=== PATIENT | female | born 1990 | race Caucasian/White ===

== ENCOUNTER 2017-11-24 23:22 | Inpatient (IN) | payer MEDICAID ==
[2017-11-25] MEDS ORDERED: Sodium Chloride 0.9% 10 ML Syringe FLUSH PRN ×2 (00:11→05:21)
[2017-11-25] MEDS: Sodium Chloride 0.9% 1,000 ML IV SCH ×2 (00:36→04:16)
[2017-11-25] MEDS ORDERED: Ropivacaine HCl/PF 200 ML ONE (04:53)
[2017-11-25] MEDS ORDERED: fentaNYL 100 MCG/2 ML SDV IVPUSH PRN (05:21)
[2017-11-25] MEDS ORDERED: Acetaminophen 325 MG Tab PO PRN (05:21)
--- NOTE | 2017-11-25 05:34 | ANES ---
DATE OF SERVICE: 11/25/2017 I was called in at 4 o'clock this morning for a labor epidural for labor pain, I was at the bedside shortly after that at about 4:20. Brief history and physical of the was reviewed with the patient and . The patient stated that she had no abnormal bleeding issues. No hypertension during the . She stated she did have some heartburn, acid reflux symptoms, but otherwise overall healthy and normal . Platelet count was 258. The risks and benefits were reviewed with the patient and . The patient verbalized her understanding and still wishes to proceed with the labor epidural. She has had 1 in the past with the different delivery. The patient was then sat at the edge of the bed. Betadine prep x3 to the lumbar region was done. Sterile drape was placed. A 1% lidocaine skin wheal and deep was done at approximately the L4-L5 spot. A 17- gauge Tuohy needle was inserted at the L4-L5 space. Loss of resistance was achieved at approximately 5.5 cm, negative paresthesia, negative heme, negative CSF were noted at that time. Catheter was easily placed. Tuohy needle was then withdrawn. Catheter was pulled back to approximately 11 cm and secured with tape. I then proceeded to give the patient a 3 mL test dose. The patient was then laid supine with left uterine displacement. After several minutes, she showed no signs of local anesthetic toxicity or intravascular injection of local or subarachnoid block. I then proceeded to give her 10 mL of 0.2% ropivacaine bolus via the epidural. I then started her on a 0.2% ropivacaine drip at 12 mL an hour. The patient's blood pressure was fine after the bolus. The patient stated that she was starting to feel some tingling and numbness particularly in her right leg, but contractions were getting easier. The patient stated that she was comfortable. The patient will be monitored very closely by the nurses. Vital signs will be taken frequently. When I left the bedside, the patient stated she was comfortable. Marcelo Sanchez CRNA /[id number]
[2017-11-25] MEDS ORDERED: Penicillin G Potassium 5 MILLUNITS in Sodium Chloride 0.9% 50 ML IV ONE (05:46)
[2017-11-25] MEDS ORDERED: ePHEDrine 50 MG/ML SDV ONE (05:50)
--- NOTE | 2017-11-25 05:55 | PCM.LDHP ---
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: - Past Surgical History HEENT Surgical History: Reports: Other (See Below) Other HEENT Surgeries/Procedures: 2 ear surgeries Social & Family History - Family History Family Medical History: Noncontributory - Tobacco Use Smoking Status *Q: Never Smoker Second Hand Smoke Exposure: No - Caffeine Use Caffeine Use: Reports: Coffee - Recreational Drug Use Recreational Drug Use: No H&P Review of Systems - Review of Systems: Review Of Systems: See Below General: Reports: No Symptoms HEENT: Reports: No Symptoms Pulmonary: Reports: No Symptoms Cardiovascular: Reports: No Symptoms Gastrointestinal: Reports: No Symptoms Genitourinary: Reports: No Symptoms Musculoskeletal: Reports: No Symptoms Skin: Reports: No Symptoms Psychiatric: Reports: No Symptoms Neurological: Reports: No Symptoms Hematologic/Lymphatic: Reports: No Symptoms Immunologic: Reports: No Symptoms L&D Exam - Exam Exam: See Below - Vital Signs Vital Signs: Last Vital Signs Temp 36.2 C 11/25/17 02:45 Pulse 78 11/25/17 02:45 Resp 16 11/25/17 02:45 BP 105/67 11/25/17 02:45 Pulse Ox 97 11/25/17 02:45 Weight: 74.843 kg - OB Specific Contraction Duration (sec): 50-100 Contraction Frequency (min): 2-3 Contraction Intensity: Moderate Movement: Active Heart Tones: Present Heart Rate (FHR) Variability: Moderate (6-25 bmp) Presentation: Left Occiput Posterior (LOP) - Gallo Score Gallo Score Cervix Position: Midposition Gallo Score Consistency: Soft Gallo Score Effacement: >80% Gallo Score Dilation: > 5 cm Gallo Score 's Station: -2 Gallo Score Total: 10 - Exam General: Alert, Oriented HEENT: PERRLA, Conjunctiva Clear, EACs Clear, EOMI, Hearing Intact, Mucosa Moist & [place], Nares Patent, Normal Nasal Septum, Posterior Pharynx Clear, TMs Clear Neck: Supple, Trachea Midline Lungs: Clear to Auscultation, Normal Respiratory Effort Cardiovascular: Regular Rate, Regular Rhythm GI/Abdominal Exam: Normal Bowel Sounds, Soft, Non-Tender, No Organomegaly, No Distention, No Abnormal Bruit, No Mass, Pelvis Stable Rectal Exam: Normal Exam, Normal Rectal Tone Genitourinary: Normal external exam, Normal bimanual exam, Normal speculum exam Back Exam: Normal Inspection, Full Range of Motion Extremities: Normal Inspection, Normal Range of Motion, Non-Tender, No Pedal Edema, Normal Capillary Refill Skin: Warm, Dry, Intact Neurological: Cranial Nerves Intact, Reflexes Equal Bilateral DTR: 2+: Patella (L), Patella (R) Psychiatric: Alert, Normal Affect, Normal Mood - Patient Data Lab Results Last 24 hrs: Laboratory Results - last 24 hr 11/24/17 11/24/17 11/25/17 Range/Units 23:29 23:48 00:20 WBC 9.6 (4.5-11.0) K/uL RBC 3.92 (3.30-5.50) M/uL Hgb 10.6 L (12.0-15.0) g/dL Hct 33.1 L (36.0-48.0) % MCV 84 (80-98) fL MCH 27 (27-31) pg MCHC 32 (32-36) % Plt Count 258 (150-400) K/uL Urine Color Yellow Urine Appearance Clear Urine pH 6.0 (4.5-8.0) Ur Specific [place] 1.010 (1.008-1.030) Urine Protein Negative (NEGATIVE) mg/dL Urine Glucose (UA) Normal (NEGATIVE) mg/dL Urine Ketones Negative (NEGATIVE) mg/dL Urine Occult Blood Negative (NEGATIVE) Urine Nitrite Negative (NEGATIVE) Urine Bilirubin Negative (NEGATIVE) Urine Urobilinogen Normal (NORMAL) mg/dL Ur Leukocyte Esterase Negative (NEGATIVE) Urine RBC 0-5 (0-5) Urine WBC 0-5 (0-5) Ur Epithelial Cells Few Amorphous Sediment Not seen Urine Bacteria Rare Urine Mucus Not seen Membrane Rupture Positive H (NEGATIVE) Urine Opiates Screen (NEGATIVE) Ur Oxycodone Screen (NEGATIVE) Urine Methadone Screen (NEGATIVE) Ur Propoxyphene Screen (NEGATIVE) Ur Barbiturates Screen (NEGATIVE) Ur Tricyclics Screen (NEGATIVE) Ur Phencyclidine Scrn (NEGATIVE) Ur Amphetamine Screen (NEGATIVE) U Methamphetamines Scrn (NEGATIVE) Urine MDMA Screen (NEGATIVE) U Benzodiazepines Scrn (NEGATIVE) U Cocaine Metab Screen (NEGATIVE) U Marijuana (THC) Screen (NEGATIVE) 11/25/17 Range/Units 00:20 WBC (4.5-11.0) K/uL RBC (3.30-5.50) M/uL Hgb (12.0-15.0) g/dL Hct (36.0-48.0) % MCV (80-98) fL MCH (27-31) pg MCHC (32-36) % Plt Count (150-400) K/uL Urine Color Urine Appearance Urine pH (4.5-8.0) Ur Specific [place] (1.008-1.030) Urine Protein (NEGATIVE) mg/dL Urine Glucose (UA) (NEGATIVE) mg/dL Urine Ketones (NEGATIVE) mg/dL Urine Occult Blood (NEGATIVE) Urine Nitrite (NEGATIVE) Urine Bilirubin (NEGATIVE) Urine Urobilinogen (NORMAL) mg/dL Ur Leukocyte Esterase (NEGATIVE) Urine RBC (0-5) Urine WBC (0-5) Ur Epithelial Cells Amorphous Sediment Urine Bacteria Urine Mucus Membrane Rupture (NEGATIVE) Urine Opiates Screen Negative (NEGATIVE) Ur Oxycodone Screen Negative (NEGATIVE) Urine Methadone Screen Negative (NEGATIVE) Ur Propoxyphene Screen Negative (NEGATIVE) Ur Barbiturates Screen Negative (NEGATIVE) Ur Tricyclics Screen Negative (NEGATIVE) Ur Phencyclidine Scrn Negative (NEGATIVE) Ur Amphetamine Screen Negative (NEGATIVE) U Methamphetamines Scrn Negative (NEGATIVE) Urine MDMA Screen Negative (NEGATIVE) U Benzodiazepines Scrn Negative (NEGATIVE) U Cocaine Metab Screen Negative (NEGATIVE) U Marijuana (THC) Screen Negative (NEGATIVE) Result Diagrams: 11/25/17 00:20 - Problem List (1) Prolonged rupture of membranes Status: Acute Current Visit: Yes (2) SNOMED Code(s): 63023805 ICD Code: Z34.90 - ENCNTR FOR SUPRVSN OF NORMAL , UNSP, UNSP TRIMESTER Status: Acute Current Visit: Yes Qualifiers: Weeks of gestation: 38 weeks Qualified Code(s): Z3A.38 - 38 weeks gestation of Problem List Initiated/Reviewed/Updated: Yes Orders Last 24hrs: Active Orders 24 hr Category Date Time Status Patient Status [ADT] Routine ADT 11/25/17 00:05 Active Patient Status [ADT] Routine ADT 11/25/17 05:21 Active Ambulate [RC] PER UNIT ROUTINE Care 11/25/17 05:21 Active Communication Order [RC] ASDIRECTED Care 11/25/17 05:21 Active Heart Tones [RC] PER UNIT ROUTINE Care 11/25/17 05:21 Active Non Stress Test [RC] Click to Edit Care 11/25/17 05:21 Active Notify Provider Vital Signs [RC] PRN Care 11/25/17 05:21 Active Notify Provider [RC] PRN Care 11/25/17 05:21 Active OB Check [OM.PC] Click to Edit Care 11/24/17 23:25 Ordered PCEA Epidural [RC] ASDIRECTED Care 11/25/17 04:00 Active Peripheral IV Care [RC] Q12H Care 11/25/17 00:12 Active Urinary Catheter Assessment [RC] ASDIRECTED Care 11/25/17 05:31 Active Urinary Catheter Insertion [Insert Urinary Catheter] [ Care 11/25/17 05:30 Ordered OM.PC] Q24H VTE/DVT Education [RC] Click to Edit Care 11/25/17 05:27 Active Vital Signs [RC] PER UNIT ROUTINE Care 11/25/17 05:21 Active AMNISURE RUPTURE MEMBRAN [BF] Urgent Lab 11/24/17 23:48 Ordered DRUG SCREEN, URINE [URCHEM] Routine Lab 11/25/17 00:20 Ordered UA W/MICROSCOPIC [URIN] Routine Lab 11/24/17 23:29 Ordered Acetaminophen [Tylenol] Med 11/25/17 05:21 Active 650 mg PO Q4H PRN Oxytocin/Normal Saline [Pitocin in NS 20 Units/1,000 ML Med 11/25/17 05:29 Active ] 20 unit in 1,000 ml IV ONETIME Oxytocin/Normal Saline [Pitocin in NS 20 Units/1,000 ML Med 11/25/17 00:15 Active ] 20 unit in 1,000 ml IV TITRATE Penicillin G Potassium [Pfizerpen] 5 millunits Med 11/25/17 05:46 Ordered Sodium Chloride 0.9% [Normal Saline] 50 ml IV ONETIME Sodium Chloride 0.9% [Normal Saline] 1,000 ml Med 11/25/17 00:30 Active IV ASDIRECTED Sodium Chloride 0.9% [Saline Flush] Med 11/25/17 00:11 Active 10 ml FLUSH ASDIRECTED PRN Sodium Chloride 0.9% [Saline Flush] Med 11/25/17 05:21 Active 10 ml FLUSH ASDIRECTED PRN fentaNYL [Sublimaze] Med 11/25/17 05:21 Active 100 mcg IVPUSH Q1H PRN DVT/VTE Prophylaxis Reflex [OM.PC] Routine Oth 11/25/17 05:21 Ordered Epidural Catheter Management [OM.PC] Routine Oth 11/25/17 04:00 Ordered Peripheral IV Insertion Adult [OM.PC] Routine Oth 11/25/17 00:11 Ordered Saline Lock Insert [OM.PC] Routine Oth 11/25/17 05:21 Ordered Resuscitation Status Routine Resus Stat 11/25/17 05:21 Ordered Medication Orders Acetaminophen (Tylenol) 650 mg PO Q4H PRN PRN Reason: Pain (Mild 1-3) and fever Fentanyl (Sublimaze) 100 mcg IVPUSH Q1H PRN PRN Reason: Pain (moderate 4-6) Oxytocin/Sodium Chloride (Pitocin In Ns 20 Units/1,000 Ml) 20 unit in 1,000 mls @ 6 mls/hr IV TITRATE HERIBERTO; Protocol Last Titration: 11/25/17 02:41 Dose: 4 munits/min, 12 mls/hr Titration: 11/25/17 01:31 Dose: 3 munits/min, 9 mls/hr Admin: 11/25/17 00:51 Dose: 2 munits/min, 6 mls/hr Sodium Chloride (Normal Saline) 1,000 mls @ 0 mls/hr IV ASDIRECTED HERIBERTO Last Admin: 11/25/17 04:16 Dose: 25 mls/hr Infusion: 11/25/17 03:57 Dose: 999 mls/hr Infusion: 11/25/17 03:00 Dose: 999 mls/hr Admin: 11/25/17 00:36 Dose: 25 mls/hr Oxytocin/Sodium Chloride (Pitocin In Ns 20 Units/1,000 Ml) 20 unit in 1,000 mls @ 2,997 mls/hr IV ONETIME ONE; Protocol Stop: 11/25/17 05:49 Sodium Chloride (Saline Flush) 10 ml FLUSH ASDIRECTED PRN PRN Reason: Keep Vein Open Sodium Chloride (Saline Flush) 10 ml FLUSH ASDIRECTED PRN PRN Reason: Keep Vein Open Assessment/Plan Comment:: 11/25/2017 27 yo came in with SROM at 0900 on 11/24/2017 but came to the hospital around 2330 last evening. Positive Amnisure Prolonged Rupture of Membranes SVE now 6-7/80/-2 Fetus in LOP position FHTs category one Chanda regular with Pitocin Plan- Continue to monitor labor Continue to monitor FHTs Epidural for pain management Continue IV fluids Continue Pitocin per protocol Give one dose PCN G 5 units IV now-if no delivery in four hours will do another dose at 2.5 units Rotate patient on peanut ball Minimal SVE exams Monitor vital signs closely Plan and anticipate a vaginal delivery
[2017-11-25] MEDS ORDERED: ePHEDrine 50 MG/ML SDV IVPUSH PRN (06:31)
[2017-11-25] MEDS ORDERED: ePHEDrine 50 MG/ML SDV IVPUSH ONE (06:32)
[2017-11-25] MEDS ORDERED: Lactated Ringers 1,000 ML IV ONE (06:32)
--- NOTE | 2017-11-25 06:50 | PCM.PNLD ---
Labor Progress Note - VS & Meds Vital Signs: Last Vital Signs Temp 36.2 C 11/25/17 02:45 Pulse 78 11/25/17 02:45 Resp 16 11/25/17 02:45 BP 105/67 11/25/17 02:45 Pulse Ox 97 11/25/17 02:45 Active Medications: Current Medications Acetaminophen (Tylenol) 650 mg PO Q4H PRN PRN Reason: Pain (Mild 1-3) and fever Fentanyl (Sublimaze) 100 mcg IVPUSH Q1H PRN PRN Reason: Pain (moderate 4-6) Oxytocin/Sodium Chloride (Pitocin In Ns 20 Units/1,000 Ml) 20 unit in 1,000 mls @ 6 mls/hr IV TITRATE HERIBERTO; Protocol Last Titration: 11/25/17 06:25 Dose: 6 munits/min, 18 mls/hr Sodium Chloride (Normal Saline) 1,000 mls @ 0 mls/hr IV ASDIRECTED HERIBERTO Last Infusion: 11/25/17 06:24 Dose: 100 mls/hr Lactated Ringer's (Ringers, Lactated) 1,000 mls @ 999 mls/hr IV ONETIME ONE Stop: 11/25/17 07:32 Sodium Chloride (Saline Flush) 10 ml FLUSH ASDIRECTED PRN PRN Reason: Keep Vein Open Sodium Chloride (Saline Flush) 10 ml FLUSH ASDIRECTED PRN PRN Reason: Keep Vein Open Discontinued Medications Ephedrine Sulfate (Ephedrine Sulfate) Confirm Administered Dose 50 mg .ROUTE .ST-MED ONE Stop: 11/25/17 05:51 Last Admin: 11/25/17 06:14 Dose: 5 mg Ephedrine Sulfate (Ephedrine Sulfate) 5 - 10 mg IVPUSH ONETIME PRN PRN Reason: Hypotension Ephedrine Sulfate (Ephedrine Sulfate) 5 mg IVPUSH ONETIME ONE Stop: 11/25/17 06:33 Ropivacaine (Naropin 0.2%) Confirm Administered Dose 200 mls @ as directed .ROUTE .STK-MED ONE Stop: 11/25/17 04:54 Oxytocin/Sodium Chloride (Pitocin In Ns 20 Units/1,000 Ml) 20 unit in 1,000 mls @ 2,997 mls/hr IV ONETIME ONE; Protocol Stop: 07/15/18 05:49 Penicillin G Potassium 5 (millunits/ Sodium Chloride) 50 mls @ 100 mls/hr IV ONETIME ONE Stop: 11/25/17 06:15 Last Admin: 11/25/17 06:21 Dose: 100 mls/hr - Uterine Contractions Uterine Monitoring Mode: External [place] Contraction Frequency (min): 2-3 Contraction Duration (sec): 50-100 Contraction Intensity: Moderate Uterine Resting Tone: Soft - Monitoring Heart Rate (FHR) Variability: Moderate (6-25 bmp) - Vaginal Exam Dilation (cm): 6-7 Effacement (Percent): 80 Station: -2 Cervical Position: Midposition Sterile Vaginal Exam Performed By: Joanie Campoverde - Labor Progress (Free Text) Labor Progress: 11/25/2017 Patient remains SVE-6-7/80/-2 FHTs category one Contractions every 1-3 minutes Patient comfortable with epidural Plan- Continue to monitor labor Continue to monitor FHTs Continue Epidural for pain Continue fluids-bolus as needed for BP and/or heart tones Continue to rotate position of patient If no delivery at 24 hours rupture will continue antibiotics every 4 hours Plan and anticipate a vaginal delivery
--- NOTE | 2017-11-25 08:02 | PCM.PNLD ---
Labor Progress Note - VS & Meds Vital Signs: Last Vital Signs Temp 36.4 C 11/25/17 07:02 Pulse 101 H 11/25/17 07:17 Resp 16 11/25/17 07:17 BP 122/67 11/25/17 07:17 Pulse Ox 99 11/25/17 07:17 Active Medications: Current Medications Acetaminophen (Tylenol) 650 mg PO Q4H PRN PRN Reason: Pain (Mild 1-3) and fever Fentanyl (Sublimaze) 100 mcg IVPUSH Q1H PRN PRN Reason: Pain (moderate 4-6) Oxytocin/Sodium Chloride (Pitocin In Ns 20 Units/1,000 Ml) 20 unit in 1,000 mls @ 6 mls/hr IV TITRATE HERIBERTO; Protocol Last Titration: 11/25/17 07:46 Dose: 10 munits/min, 30 mls/hr Sodium Chloride (Normal Saline) 1,000 mls @ 0 mls/hr IV ASDIRECTED HERIBERTO Last Infusion: 11/25/17 06:24 Dose: 100 mls/hr Sodium Chloride (Saline Flush) 10 ml FLUSH ASDIRECTED PRN PRN Reason: Keep Vein Open Sodium Chloride (Saline Flush) 10 ml FLUSH ASDIRECTED PRN PRN Reason: Keep Vein Open Discontinued Medications Ephedrine Sulfate (Ephedrine Sulfate) Confirm Administered Dose 50 mg .ROUTE .[employer] ONE Stop: 11/25/17 05:51 Last Admin: 11/25/17 06:14 Dose: 5 mg Ephedrine Sulfate (Ephedrine Sulfate) 5 - 10 mg IVPUSH ONETIME PRN PRN Reason: Hypotension Ephedrine Sulfate (Ephedrine Sulfate) 5 mg IVPUSH ONETIME ONE Stop: 11/25/17 06:33 Last Admin: 11/25/17 06:30 Dose: 5 mg Ropivacaine (Naropin 0.2%) Confirm Administered Dose 200 mls @ as directed .ROUTE .[employer]-MED ONE Stop: 11/25/17 04:54 Oxytocin/Sodium Chloride (Pitocin In Ns 20 Units/1,000 Ml) 20 unit in 1,000 mls @ 2,997 mls/hr IV ONETIME ONE; Protocol Stop: 11/25/17 05:49 Penicillin G Potassium 5 (millunits/ Sodium Chloride) 50 mls @ 100 mls/hr IV ONETIME ONE Stop: 11/25/17 06:15 Last Admin: 11/25/17 06:21 Dose: 100 mls/hr Lactated Ringer's (Ringers, Lactated) 1,000 mls @ 999 mls/hr IV ONETIME ONE Stop: 11/25/17 07:32 - Uterine Contractions Uterine Monitoring Mode: External [place] Contraction Frequency (min): 2-4 Contraction Duration (sec): 60-90 Contraction Intensity: Moderate to Strong Uterine Resting Tone: Soft - Monitoring Heart Rate (FHR) Variability: Moderate (6-25 bmp) - Vaginal Exam Dilation (cm): 8 Effacement (Percent): 90 Station: 0 Cervical Position: Anterior Sterile Vaginal Exam Performed By: Joanie Campoverde - Labor Progress (Free Text) Labor Progress: 11/25/2017 Patient progressing SVE-8-9/90/0 Contractions regular FHTs category one Pitocin going per protocol Patient comfortable with epidural Plan- Continue to monitor labor Continue to monitor FHTs Continue pitocin per protocol Continue epidural for pain control Plan and anticipate a vaginal delivery
[2017-11-25] MEDS ORDERED: Oxytocin 10 Units/1 ML SDV ONE (08:46)
[2017-11-25] MEDS ORDERED: Lidocaine 1% 50 ML MDV ONE (08:47)
[2017-11-25] MEDS ORDERED: Methylergonovine 0.2 MG/1 ML Amp IM ONE (09:00)
[2017-11-25] MEDS ORDERED: Methylergonovine 0.2 MG/1 ML Amp ONE (09:07)
[2017-11-25] MEDS ORDERED: Ibuprofen 200 MG Tab, 24 Tab Bulk Bottle PO PRN (09:40)
[2017-11-25] MEDS ORDERED: Acetaminophen 325 MG Tab, 50 Tab Bulk Bottle PO PRN (09:40)
[2017-11-25] MEDS ORDERED: Acetaminophen/Codeine 300-30 MG Tab PO PRN (09:40)
[2017-11-25] MEDS ORDERED: Docusate Sodium 100 MG Cap PO PRN (09:40)
[2017-11-25] MEDS ORDERED: Witch Hazel Medicated Pads 100/Jar TOP PRN (09:40)
[2017-11-25] MEDS ORDERED: Benzocaine 20% Top Spray 56 GM Bottle TOP PRN (09:40)
[2017-11-25] MEDS ORDERED: Lanolin 100% Cream 40 GM Tube TOP PRN (09:40)
--- NOTE | 2017-11-25 10:09 | PCM.DEL ---
L & D Note - General Info Date of Service: 11/25/17 Mother's Due Date: 12/03/17 - Delivery Note Labor: Augmented by Oxytocin Delivery Outcome: Livebirth Infant Delivery Method: Spontaneous Vaginal Delivery-Single Delivery Mode: Spontaneous Presentation: Left Occiput Transverse (LOT) Nuchal Cord: None Anesthesia Type: Epidural Amniotic Fluid Description: Meconium Stained Episiotomy Type: Right Mediolateral Laceration: 2nd Degree Suture type: Chromic Suture size: 3-0 Placenta: Intact, Spontaneous, Clot (moderate sized), Meconium Stained Cord: 3 Vessels, True Knot Estimated Blood Loss: 450 Resuscitation Needed: No : Bulb Syringe, Stimulated, Warmed, [place] Used Provider: Joanie Campoverde Score 1 min: 9 Score 5 min: 9 Second Stage Interventions: Reports: Encouragement Given, Pushing Effectively, Pushing, McRobert's Position, Other (see below) (suprapubic ) Delivery Comments (Free Text/Narrative):: 11/25/2017 27 yo had a viable male at 0851 on 11/25/2017 in LOT position at 38 6/7 gestational weeks. Mild shoulder dystocia resolved with Jossie and Suprapubic. APGARS-9/9, weight-8lbs 9.6oz, length-20 inches. Infant placed on prewarmed blanket on mothers abdomen, stimulated, warmed, dried, and bulb suctioned. Cord then double clamped, three vessel cord, true knot noted. Placenta spontaneous and intact, moderate clot noted, and meconium stained. Right mediolateral episiotomy with 2nd degree extension repaired in usual fashion. No lacerations noted of cervix, labia, or rectum. EBL-450ml. Mother in labor and delivery room stable condition, and remains skin to skin in stable condition. - General Info Date of Service: 11/25/17 Functional Status: Reports: Pain Controlled - Review of Systems General: Reports: No Symptoms HEENT: Reports: No Symptoms Pulmonary: Reports: No Symptoms Cardiovascular: Reports: No Symptoms Gastrointestinal: Reports: No Symptoms Genitourinary: Reports: No Symptoms Musculoskeletal: Reports: No Symptoms Skin: Reports: No Symptoms Neurological: Reports: No Symptoms Psychiatric: Reports: No Symptoms - Patient Data Vitals - Most Recent: Last Vital Signs Temp 36.4 C 11/25/17 07:02 Pulse 88 07/15/18 09:20 Resp 18 11/25/17 09:20 BP 79/62 L 11/25/17 09:20 Pulse Ox 96 11/25/17 09:20 Weight - Most Recent: 74.843 kg Lab Results Last 24 Hours: Laboratory Results - last 24 hr 11/24/17 11/24/17 11/25/17 Range/Units 23:29 23:48 00:20 WBC 9.6 (4.5-11.0) K/uL RBC 3.92 (3.30-5.50) M/uL Hgb 10.6 L (12.0-15.0) g/dL Hct 33.1 L (36.0-48.0) % MCV 84 (80-98) fL MCH 27 (27-31) pg MCHC 32 (32-36) % Plt Count 258 (150-400) K/uL Urine Color Yellow Urine Appearance Clear Urine pH 6.0 (4.5-8.0) Ur Specific [place] 1.010 (1.008-1.030) Urine Protein Negative (NEGATIVE) mg/dL Urine Glucose (UA) Normal (NEGATIVE) mg/dL Urine Ketones Negative (NEGATIVE) mg/dL Urine Occult Blood Negative (NEGATIVE) Urine Nitrite Negative (NEGATIVE) Urine Bilirubin Negative (NEGATIVE) Urine Urobilinogen Normal (NORMAL) mg/dL Ur Leukocyte Esterase Negative (NEGATIVE) Urine RBC 0-5 (0-5) Urine WBC 0-5 (0-5) Ur Epithelial Cells Few Amorphous Sediment Not seen Urine Bacteria Rare Urine Mucus Not seen Membrane Rupture Positive H (NEGATIVE) Urine Opiates Screen (NEGATIVE) Ur Oxycodone Screen (NEGATIVE) Urine Methadone Screen (NEGATIVE) Ur Propoxyphene Screen (NEGATIVE) Ur Barbiturates Screen (NEGATIVE) Ur Tricyclics Screen (NEGATIVE) Ur Phencyclidine Scrn (NEGATIVE) Ur Amphetamine Screen (NEGATIVE) U Methamphetamines Scrn (NEGATIVE) Urine MDMA Screen (NEGATIVE) U Benzodiazepines Scrn (NEGATIVE) U Cocaine Metab Screen (NEGATIVE) U Marijuana (THC) Screen (NEGATIVE) 11/25/17 Range/Units 00:20 WBC (4.5-11.0) K/uL RBC (3.30-5.50) M/uL Hgb (12.0-15.0) g/dL Hct (36.0-48.0) % MCV (80-98) fL MCH (27-31) pg MCHC (32-36) % Plt Count (150-400) K/uL Urine Color Urine Appearance Urine pH (4.5-8.0) Ur Specific [place] (1.008-1.030) Urine Protein (NEGATIVE) mg/dL Urine Glucose (UA) (NEGATIVE) mg/dL Urine Ketones (NEGATIVE) mg/dL Urine Occult Blood (NEGATIVE) Urine Nitrite (NEGATIVE) Urine Bilirubin (NEGATIVE) Urine Urobilinogen (NORMAL) mg/dL Ur Leukocyte Esterase (NEGATIVE) Urine RBC (0-5) Urine WBC (0-5) Ur Epithelial Cells Amorphous Sediment Urine Bacteria Urine Mucus Membrane Rupture (NEGATIVE) Urine Opiates Screen Negative (NEGATIVE) Ur Oxycodone Screen Negative (NEGATIVE) Urine Methadone Screen Negative (NEGATIVE) Ur Propoxyphene Screen Negative (NEGATIVE) Ur Barbiturates Screen Negative (NEGATIVE) Ur Tricyclics Screen Negative (NEGATIVE) Ur Phencyclidine Scrn Negative (NEGATIVE) Ur Amphetamine Screen Negative (NEGATIVE) U Methamphetamines Scrn Negative (NEGATIVE) Urine MDMA Screen Negative (NEGATIVE) U Benzodiazepines Scrn Negative (NEGATIVE) U Cocaine Metab Screen Negative (NEGATIVE) U Marijuana (THC) Screen Negative (NEGATIVE) Med Orders - Current: Current Medications Acetaminophen (Tylenol) 650 mg PO Q4H PRN PRN Reason: Pain (Mild 1-3) and fever Acetaminophen (Tylenol Bulk Bottle) 325 - 650 mg PO Q4H PRN PRN Reason: Pain Acetaminophen/Codeine Phosphate (Tylenol With Codeine No.3 300mg/30mg) 1 tab PO Q4H PRN PRN Reason: Pain (moderate 4-6) Benzocaine (Poky-B-Ahisusp 20% [place]) 0 gm TOP Q4H PRN PRN Reason: Perineal Comfort Measure Docusate Sodium (Colace) 100 mg PO BID PRN PRN Reason: Constipation Emollient Ointment (Lansinoh Hpa) 1 gm TOP ASDIRECTED PRN PRN Reason: Sore Nipples Fentanyl (Sublimaze) 100 mcg IVPUSH Q1H PRN PRN Reason: Pain (moderate 4-6) Oxytocin/Sodium Chloride (Pitocin In Ns 20 Units/1,000 Ml) 20 unit in 1,000 mls @ 6 mls/hr IV TITRATE HERIBERTO; Protocol Last Titration: 11/25/17 07:46 Dose: 10 munits/min, 30 mls/hr Sodium Chloride (Normal Saline) 1,000 mls @ 0 mls/hr IV ASDIRECTED HERIBERTO Last Infusion: 11/25/17 06:24 Dose: 100 mls/hr Ibuprofen (Motrin Bulk Bottle) 600 mg PO Q6H PRN PRN Reason: Pain Sodium Chloride (Saline Flush) 10 ml FLUSH ASDIRECTED PRN PRN Reason: Keep Vein Open Sodium Chloride (Saline Flush) 10 ml FLUSH ASDIRECTED PRN PRN Reason: Keep Vein Open Witch Mirian (Tucks) 1 pad TOP ASDIRECTED PRN PRN Reason: Hemorrhoids Discontinued Medications Ephedrine Sulfate (Ephedrine Sulfate) Confirm Administered Dose 50 mg .ROUTE .STK-MED ONE Stop: 11/25/17 05:51 Last Admin: 11/25/17 06:14 Dose: 5 mg Ephedrine Sulfate (Ephedrine Sulfate) 5 - 10 mg IVPUSH ONETIME PRN PRN Reason: Hypotension Ephedrine Sulfate (Ephedrine Sulfate) 5 mg IVPUSH ONETIME ONE Stop: 11/25/17 06:33 Last Admin: 11/25/17 06:30 Dose: 5 mg Ropivacaine (Naropin 0.2%) Confirm Administered Dose 200 mls @ as directed .ROUTE .STK-MED ONE Stop: 11/25/17 04:54 Oxytocin/Sodium Chloride (Pitocin In Ns 20 Units/1,000 Ml) 20 unit in 1,000 mls @ 2,997 mls/hr IV ONETIME ONE; Protocol Stop: 11/25/17 05:49 Last Admin: 11/25/17 09:13 Dose: Not Given Penicillin G Potassium 5 (millunits/ Sodium Chloride) 50 mls @ 100 mls/hr IV ONETIME ONE Stop: 11/25/17 06:15 Last Admin: 11/25/17 06:21 Dose: 100 mls/hr Lactated Ringer's (Ringers, Lactated) 1,000 mls @ 999 mls/hr IV ONETIME ONE Stop: 11/25/17 07:32 Last Admin: 11/25/17 09:13 Dose: Not Given Lidocaine HCl (Xylocaine 1%) Confirm Administered Dose 100 ml .ROUTE .STK-MED ONE Stop: 11/25/17 08:48 Last Admin: 11/25/17 09:12 Dose: Not Given Methylergonovine Maleate (Methergine) Confirm Administered Dose 0.2 mg .ROUTE .STK-MED ONE Stop: 11/25/17 09:08 Last Admin: 11/25/17 09:12 Dose: 0.2 mg Oxytocin (Pitocin) Confirm Administered Dose 10 unit .ROUTE .STK-MED ONE Stop: 11/25/17 08:47 Last Admin: 11/25/17 09:12 Dose: Not Given - Exam General: Alert, Oriented HEENT: Pupils Equal, Pupils Reactive, EOMI, Mucous Membr. Moist/[place] Neck: Supple Lungs: Clear to Auscultation, Normal Respiratory Effort Cardiovascular: Regular Rate, Regular Rhythm GI/Abdominal Exam: Normal Bowel Sounds, Soft, Non-Tender, No Organomegaly, No Distention, No Abnormal Bruit, No Mass, Pelvis Stable (Female) Exam: Normal External Exam, Normal Speculum Exam, Normal Bimanual Exam Back Exam: Normal Inspection, Full Range of Motion Extremities: Normal Inspection, Normal Range of Motion, Non-Tender, No Pedal Edema, Normal Capillary Refill Skin: Warm, Dry, Intact Neurological: No New Focal Deficit Psy/Mental Status: Alert, Normal Affect, Normal Mood - Problem List & Annotations (1) Prolonged rupture of membranes Status: Acute Current Visit: Yes (2) SNOMED Code(s): 80981088 Code(s): Z34.90 - ENCNTR FOR SUPRVSN OF NORMAL , UNSP, UNSP TRIMESTER Status: Acute Current Visit: Yes Qualifiers: Weeks of gestation: 38 weeks Qualified Code(s): Z3A.38 - 38 weeks gestation of (3) Perineal laceration SNOMED Code(s): 198428383 Code(s): S31.41XA - LACERATION W/O FOREIGN BODY OF VAGINA AND VULVA, INIT ENCNTR Status: Acute Current Visit: Yes Qualifiers: Encounter type: initial encounter Qualified Code(s): S31.41XA - Laceration without foreign body of vagina and vulva, initial encounter (4) Meconium in amniotic fluid SNOMED Code(s): 982373721, 001436059 Code(s): P96.83 - MECONIUM STAINING Status: Acute Current Visit: Yes - Problem List Review Problem List Initiated/Reviewed/Updated: Yes - My Orders Last 24 Hours: My Active Orders 11/24/17 23:25 OB Check [OM.PC] Click To Edit 11/24/17 23:29 UA W/MICROSCOPIC [URIN] Routine 11/24/17 23:48 AMNISURE RUPTURE MEMBRAN [BF] Urgent 11/25/17 00:05 Patient Status [ADT] Routine 11/25/17 00:11 Sodium Chloride 0.9% [Saline Flush] 10 ml FLUSH ASDIRECTED PRN Peripheral IV Insertion Adult [OM.PC] Routine 11/25/17 00:12 Peripheral IV Care [RC] Q12H 11/25/17 00:15 Oxytocin/Normal Saline [Pitocin in NS 20 Units/1,000 ML] 20 unit in 1,000 ml IV TITRATE 11/25/17 00:20 DRUG SCREEN, URINE [URCHEM] Routine 11/25/17 00:30 Sodium Chloride 0.9% [Normal Saline] 1,000 ml IV ASDIRECTED 11/25/17 04:00 PCEA Epidural [RC] ASDIRECTED Epidural Catheter Management [OM.PC] Routine 11/25/17 05:21 Patient Status [ADT] Routine Ambulate [RC] PER UNIT ROUTINE Communication Order [RC] ASDIRECTED Heart Tones [RC] PER UNIT ROUTINE Notify Provider Vital Signs [RC] PRN Notify Provider [RC] PRN Vital Signs [RC] PER UNIT ROUTINE Acetaminophen [Tylenol] 650 mg PO Q4H PRN Sodium Chloride 0.9% [Saline Flush] 10 ml FLUSH ASDIRECTED PRN fentaNYL [Sublimaze] 100 mcg IVPUSH Q1H PRN DVT/VTE Prophylaxis Reflex [OM.PC] Routine Saline Lock Insert [OM.PC] Routine Resuscitation Status Routine 11/25/17 05:27 VTE/DVT Education [RC] Click to Edit 11/25/17 05:30 Urinary Catheter Insertion [Insert Urinary Catheter] [OM.PC] Q24H 11/25/17 05:31 Urinary Catheter Assessment [RC] ASDIRECTED 11/25/17 09:40 Patient Status [ADT] Routine Up ad [place]ortencia [RC] ASDIRECTED Vital Signs [RC] PFP Acetaminophen [Tylenol Bulk Bottle] 325 - 650 mg PO Q4H PRN Acetaminophen/Codeine [Tylenol with Codeine No.3 300MG/30MG] 1 tab PO Q4H PRN Benzocaine [Illd-B-Ltejpib 20% [place]] See Dose Instructions TOP Q4H PRN Docusate Sodium [Colace] 100 mg PO BID PRN Ibuprofen [Motrin Bulk Bottle] 600 mg PO Q6H PRN Lanolin [Lansinoh HPA] 1 gm TOP ASDIRECTED PRN Witch Mirian [Tucks] 1 pad TOP ASDIRECTED PRN Assess Lochia [WOMSER] Per Unit Routine Assess Uterine Involution [WOMSER] Per Unit Routine 11/25/17 09:41 Ice Therapy [OM.PC] Per Unit Routine Perineal Care [OM.PC] Per Unit Routine Sitz Bath [OM.PC] Per Unit Routine 11/25/17 Breakfast Regular Diet [DIET] 11/26/17 06:00 CBC WITH AUTO DIFF [HEME] Routine - Assessment Assessment:: 11/25/2017 27 yo G3 now P3 at 38 6/7 gestational weeks without complications Right mediolateral episiotomy with 2nd degree extension-repaired Prolonged Rupture of membranes Labs-AB positive, GBS negative, Hep B neg, Hep C neg, HIV neg, Rubella Nonimmune , Hgb-10.6 - Plan Plan:: 11/25/2017 27 yo came in with SROM at 0900 on 11/24/2017 but came to the hospital around 2330 last evening. Positive Amnisure Prolonged Rupture of Membranes SVE now 6-7/80/-2 Fetus in LOP position FHTs category one Chanda regular with Pitocin Plan- Continue to monitor labor Continue to monitor FHTs Epidural for pain management Continue IV fluids Continue Pitocin per protocol Give one dose PCN G 5 units IV now-if no delivery in four hours will do another dose at 2.5 units Rotate patient on peanut ball Minimal SVE exams Monitor vital signs closely Plan and anticipate a vaginal delivery 11/25/2017 Routine cares Encourage and support Encourage and support good perineal care CBC tomorrow am Discharge home 24-72 hours
--- NOTE | 2017-11-26 08:23 | PCM.PNPP ---
- General Info Date of Service: 11/26/17 (PPD 1) Admission Dx/Problem (Free Text): Patient Status Order with Admit Dx/Problem 11/25/17 00:05 Patient Status [ADT] Routine 11/25/17 05:21 Patient Status [ADT] Routine Admission Diagnosis/Problem Admission Diagnosis/Problem Functional Status: Reports: Pain Controlled - Review of Systems General: Reports: No Symptoms HEENT: Reports: No Symptoms Pulmonary: Reports: No Symptoms Cardiovascular: Reports: No Symptoms Gastrointestinal: Reports: No Symptoms Genitourinary: Reports: No Symptoms Musculoskeletal: Reports: No Symptoms Skin: Reports: No Symptoms Neurological: Reports: No Symptoms Psychiatric: Reports: No Symptoms - General Info Date of Service: 11/26/17 - Patient Data Vital Signs - Most Recent: Last Vital Signs Temp 96.8 F 11/26/17 03:00 Pulse 75 11/26/17 03:00 Resp 16 11/26/17 03:00 BP 105/53 L 11/26/17 03:00 Pulse Ox 99 11/26/17 03:00 Weight - Most Recent: 165 lb I&O - Last 24 Hours: Intake & Output 11/25/17 11/26/17 11/26/17 22:59 06:59 14:59 Intake Total 1800 800 Balance 1800 800 Lab Results - Last 24 Hours: Laboratory Results - last 24 hr 11/26/17 Range/Units 06:05 WBC 16.0 H (4.5-11.0) K/uL RBC 3.81 (3.30-5.50) M/uL Hgb 10.5 L (12.0-15.0) g/dL Hct 32.7 L (36.0-48.0) % MCV 86 (80-98) fL MCH 28 (27-31) pg MCHC 32 (32-36) % Plt Count 270 (150-400) K/uL Neut % (Auto) 76 H (36-66) % Lymph % (Auto) 14 L (24-44) % [place] % (Auto) 8 H (2-6) % Eos % (Auto) 1 L (2-4) % Baso % (Auto) 0 (0-1) % Med Orders - Current: Current Medications Acetaminophen (Tylenol) 650 mg PO Q4H PRN PRN Reason: Pain (Mild 1-3) and fever Acetaminophen (Tylenol Bulk Bottle) 325 - 650 mg PO Q4H PRN PRN Reason: Pain Last Admin: 11/25/17 11:50 Dose: 650 mg Acetaminophen/Codeine Phosphate (Tylenol With Codeine No.3 300mg/30mg) 1 tab PO Q4H PRN PRN Reason: Pain (moderate 4-6) Benzocaine (Pyaq-L-Pjbuopo 20% [place]) 0 gm TOP Q4H PRN PRN Reason: Perineal Comfort Measure Last Admin: 11/25/17 11:48 Dose: 1 spr Docusate Sodium (Colace) 100 mg PO BID PRN PRN Reason: Constipation Last Admin: 11/26/17 03:29 Dose: 100 mg Emollient Ointment (Lansinoh Hpa) 1 gm TOP ASDIRECTED PRN PRN Reason: Sore Nipples Last Admin: 11/25/17 11:49 Dose: 1 applic Fentanyl (Sublimaze) 100 mcg IVPUSH Q1H PRN PRN Reason: Pain (moderate 4-6) Oxytocin/Sodium Chloride (Pitocin In Ns 20 Units/1,000 Ml) 20 unit in 1,000 mls @ 6 mls/hr IV TITRATE HERIBERTO; Protocol Last Titration: 11/25/17 08:51 Dose: 999 mls/hr Sodium Chloride (Normal Saline) 1,000 mls @ 0 mls/hr IV ASDIRECTED HERIBERTO Last Infusion: 11/25/17 08:51 Dose: 999 mls/hr Ibuprofen (Motrin Bulk Bottle) 600 mg PO Q6H PRN PRN Reason: Pain Last Admin: 11/25/17 11:49 Dose: 600 mg Sodium Chloride (Saline Flush) 10 ml FLUSH ASDIRECTED PRN PRN Reason: Keep Vein Open Sodium Chloride (Saline Flush) 10 ml FLUSH ASDIRECTED PRN PRN Reason: Keep Vein Open Witch Mirian (Tucks) 1 pad TOP ASDIRECTED PRN PRN Reason: Hemorrhoids Last Admin: 11/25/17 11:49 Dose: 1 disk Discontinued Medications Ephedrine Sulfate (Ephedrine Sulfate) Confirm Administered Dose 50 mg .ROUTE .STK-MED ONE Stop: 11/25/17 05:51 Last Admin: 11/25/17 06:14 Dose: 5 mg Ephedrine Sulfate (Ephedrine Sulfate) 5 - 10 mg IVPUSH ONETIME PRN PRN Reason: Hypotension Ephedrine Sulfate (Ephedrine Sulfate) 5 mg IVPUSH ONETIME ONE Stop: 11/25/17 06:33 Last Admin: 11/25/17 06:30 Dose: 5 mg Ropivacaine (Naropin 0.2%) Confirm Administered Dose 200 mls @ as directed .ROUTE .STK-MED ONE Stop: 11/25/17 04:54 Oxytocin/Sodium Chloride (Pitocin In Ns 20 Units/1,000 Ml) 20 unit in 1,000 mls @ 2,997 mls/hr IV ONETIME ONE; Protocol Stop: 11/25/17 05:49 Last Admin: 11/25/17 09:13 Dose: Not Given Penicillin G Potassium 5 (millunits/ Sodium Chloride) 50 mls @ 100 mls/hr IV ONETIME ONE Stop: 11/25/17 06:15 Last Admin: 11/25/17 06:21 Dose: 100 mls/hr Lactated Ringer's (Ringers, Lactated) 1,000 mls @ 999 mls/hr IV ONETIME ONE Stop: 11/25/17 07:32 Last Admin: 11/25/17 09:13 Dose: Not Given Lidocaine HCl (Xylocaine 1%) Confirm Administered Dose 100 ml .ROUTE .STK-MED ONE Stop: 11/25/17 08:48 Last Admin: 11/25/17 09:12 Dose: Not Given Methylergonovine Maleate (Methergine) Confirm Administered Dose 0.2 mg .ROUTE .STK-MED ONE Stop: 11/25/17 09:08 Last Admin: 11/25/17 09:12 Dose: 0.2 mg Oxytocin (Pitocin) Confirm Administered Dose 10 unit .ROUTE .STK-MED ONE Stop: 11/25/17 08:47 Last Admin: 11/25/17 09:12 Dose: Not Given - Infant Interaction Disposition, : [place] in Room with Family Infant Interaction: Holding Infant Feeding: Breastfed Infant; Nursed Well Support Person: - Recovery Exam Fundal Tone: Firm Fundal Level: 1 Fingerbreadths Below Umbilicus Fundal Placement: Midline Lochia Amount: Small Lochia Color: Rubra/Red Perineum Description: Intact, Minimal Bruising/Swelling, Other (see below) ( Digital exam, repair intact and looks fine, flow light) Episiotomy/Laceration: Approximated Bladder Status: Nonpalpable Urinary Elimination: Voided - Exam General: Alert, Oriented HEENT: Pupils Equal Neck: Supple Lungs: Clear to Auscultation, Normal Respiratory Effort Cardiovascular: Regular Rate, Regular Rhythm GI/Abdominal Exam: Normal Bowel Sounds, Soft, Non-Tender, No Organomegaly, No Distention, No Abnormal Bruit, No Mass, Pelvis Stable Extremities: Normal Inspection, Normal Range of Motion, Non-Tender, No Pedal Edema, Normal Capillary Refill Skin: Warm, Dry, Intact Wound/Incisions: Healing Well Neurological: No New Focal Deficit Psy/Mental Status: Alert, Normal Affect, Normal Mood - Problem List & Annotations (1) Normal labor SNOMED Code(s): 84174990 Code(s): O80 - ENCOUNTER FOR FULL-TERM UNCOMPLICATED DELIVERY; Z37.9 - OUTCOME OF DELIVERY, UNSPECIFIED Status: Acute Current Visit: No (2) Vaginal delivery SNOMED Code(s): 776827884 Code(s): O80 - ENCOUNTER FOR FULL-TERM UNCOMPLICATED DELIVERY Status: Acute Current Visit: No (3) Prolonged rupture of membranes Status: Acute Current Visit: Yes (4) SNOMED Code(s): 06751229 Code(s): Z34.90 - ENCNTR FOR SUPRVSN OF NORMAL , UNSP, UNSP TRIMESTER Status: Acute Current Visit: Yes Qualifiers: Weeks of gestation: 38 weeks Qualified Code(s): Z3A.38 - 38 weeks gestation of (5) Perineal laceration SNOMED Code(s): 783172595 Code(s): S31.41XA - LACERATION W/O FOREIGN BODY OF VAGINA AND VULVA, INIT ENCNTR Status: Acute Current Visit: Yes Qualifiers: Encounter type: initial encounter Qualified Code(s): S31.41XA - Laceration without foreign body of vagina and vulva, initial encounter (6) Meconium in amniotic fluid SNOMED Code(s): 018638988, 563748914 Code(s): P96.83 - MECONIUM STAINING Status: Acute Current Visit: Yes - Problem List Review Problem List Initiated/Reviewed/Updated: Yes - Assessment Assessment:: 11/25/2017 27 yo G3 now P3 at 38 6/7 gestational weeks without complications Right mediolateral episiotomy with 2nd degree extension-repaired Prolonged Rupture of membranes Labs-AB positive, GBS negative, Hep B neg, Hep C neg, HIV neg, Rubella Nonimmune , Hgb-10.6 11/26/17 Feeling well today, mood good well, no problems Bottom not painful, and has voided. repair intact Wants to stay until tomorrow - Plan Plan:: 11/25/2017 27 yo came in with SROM at 0900 on 11/24/2017 but came to the hospital around 2330 last evening. Positive Amnisure Prolonged Rupture of Membranes SVE now /-2 Fetus in LOP position FHTs category one Chanda regular with Pitocin Plan- Continue to monitor labor Continue to monitor FHTs Epidural for pain management Continue IV fluids Continue Pitocin per protocol Give one dose PCN G 5 units IV now-if no delivery in four hours will do another dose at 2.5 units Rotate patient on peanut ball Minimal SVE exams Monitor vital signs closely Plan and anticipate a vaginal delivery 11/25/2017 Routine cares Encourage and support Encourage and support good perineal care CBC tomorrow am Discharge home 24-72 hours 11/26/17 Home tomorrow support
--- NOTE | 2017-11-27 07:31 | PCM.PNPP ---
- General Info Date of Service: 11/27/17 (PPD 2) Admission Dx/Problem (Free Text): Patient Status Order with Admit Dx/Problem 11/25/17 00:05 Patient Status [ADT] Routine 11/25/17 05:21 Patient Status [ADT] Routine Admission Diagnosis/Problem Admission Diagnosis/Problem Functional Status: Reports: Pain Controlled - Review of Systems General: Reports: No Symptoms HEENT: Reports: No Symptoms Pulmonary: Reports: No Symptoms Cardiovascular: Reports: No Symptoms Gastrointestinal: Reports: No Symptoms Genitourinary: Reports: No Symptoms Musculoskeletal: Reports: No Symptoms Skin: Reports: No Symptoms Neurological: Reports: No Symptoms Psychiatric: Reports: No Symptoms - General Info Date of Service: 11/27/17 - Patient Data Vital Signs - Most Recent: Last Vital Signs Temp 96.9 F 11/27/17 07:06 Pulse 90 11/27/17 07:06 Resp 16 11/27/17 07:06 BP 105/63 11/27/17 07:06 Pulse Ox 98 11/27/17 07:06 Weight - Most Recent: 165 lb 0.009 oz I&O - Last 24 Hours: Intake & Output 11/26/17 11/27/17 11/27/17 22:59 06:59 14:59 Intake Total 1300 600 Balance 1300 600 Med Orders - Current: Current Medications Acetaminophen (Tylenol Bulk Bottle) 325 - 650 mg PO Q4H PRN PRN Reason: Pain Last Admin: 11/25/17 11:50 Dose: 650 mg Acetaminophen/Codeine Phosphate (Tylenol With Codeine No.3 300mg/30mg) 1 tab PO Q4H PRN PRN Reason: Pain (moderate 4-6) Benzocaine ([id number]-Mewhghx 20% [place]) 0 gm TOP Q4H PRN PRN Reason: Perineal Comfort Measure Last Admin: 11/25/17 11:48 Dose: 1 spr Docusate Sodium (Colace) 100 mg PO BID PRN PRN Reason: Constipation Last Admin: 11/26/17 03:29 Dose: 100 mg Emollient Ointment (Lansinoh Hpa) 1 gm TOP ASDIRECTED PRN PRN Reason: Sore Nipples Last Admin: 11/25/17 11:49 Dose: 1 applic Fentanyl (Sublimaze) 100 mcg IVPUSH Q1H PRN PRN Reason: Pain (moderate 4-6) Oxytocin/Sodium Chloride (Pitocin In Ns 20 Units/1,000 Ml) 20 unit in 1,000 mls @ 6 mls/hr IV TITRATE HERIBERTO; Protocol Last Titration: 11/25/17 08:51 Dose: 999 mls/hr Sodium Chloride (Normal Saline) 1,000 mls @ 0 mls/hr IV ASDIRECTED HERIBERTO Last Infusion: 11/25/17 08:51 Dose: 999 mls/hr Ibuprofen (Motrin Bulk Bottle) 600 mg PO Q6H PRN PRN Reason: Pain Last Admin: 11/25/17 11:49 Dose: 600 mg Sodium Chloride (Saline Flush) 10 ml FLUSH ASDIRECTED PRN PRN Reason: Keep Vein Open Sodium Chloride (Saline Flush) 10 ml FLUSH ASDIRECTED PRN PRN Reason: Keep Vein Open Witch Mirian (Tucks) 1 pad TOP ASDIRECTED PRN PRN Reason: Hemorrhoids Last Admin: 11/25/17 11:49 Dose: 1 disk Discontinued Medications Ephedrine Sulfate (Ephedrine Sulfate) Confirm Administered Dose 50 mg .ROUTE .STK-MED ONE Stop: 11/25/17 05:51 Last Admin: 11/25/17 06:14 Dose: 5 mg Ephedrine Sulfate (Ephedrine Sulfate) 5 - 10 mg IVPUSH ONETIME PRN PRN Reason: Hypotension Ephedrine Sulfate (Ephedrine Sulfate) 5 mg IVPUSH ONETIME ONE Stop: 11/25/17 06:33 Last Admin: 11/25/17 06:30 Dose: 5 mg Ropivacaine (Naropin 0.2%) Confirm Administered Dose 200 mls @ as directed .ROUTE .STK-MED ONE Stop: 11/25/17 04:54 Oxytocin/Sodium Chloride (Pitocin In Ns 20 Units/1,000 Ml) 20 unit in 1,000 mls @ 2,997 mls/hr IV ONETIME ONE; Protocol Stop: 11/25/17 05:49 Last Admin: 11/25/17 09:13 Dose: Not Given Penicillin G Potassium 5 (millunits/ Sodium Chloride) 50 mls @ 100 mls/hr IV ONETIME ONE Stop: 11/25/17 06:15 Last Admin: 11/25/17 06:21 Dose: 100 mls/hr Lactated Ringer's (Ringers, Lactated) 1,000 mls @ 999 mls/hr IV ONETIME ONE Stop: 11/25/17 07:32 Last Admin: 11/25/17 09:13 Dose: Not Given Lidocaine HCl (Xylocaine 1%) Confirm Administered Dose 100 ml .ROUTE .STK-MED ONE Stop: 11/25/17 08:48 Last Admin: 11/25/17 09:12 Dose: Not Given Methylergonovine Maleate (Methergine) Confirm Administered Dose 0.2 mg .ROUTE .STK-MED ONE Stop: 11/25/17 09:08 Last Admin: 11/25/17 09:12 Dose: 0.2 mg Methylergonovine Maleate (Methergine) 0.2 mg IM ONETIME ONE Stop: 11/25/17 09:01 Oxytocin (Pitocin) Confirm Administered Dose 10 unit .ROUTE .STK-MED ONE Stop: 11/25/17 08:47 Last Admin: 11/25/17 09:12 Dose: Not Given - Infant Interaction Disposition, : [place] in Room with Family Interaction: Holding Infant Feeding: Breastfed ; Nursed Well Support Person: - Recovery Exam Fundal Tone: Firm Fundal Level: 1 Fingerbreadths Below Umbilicus Fundal Placement: Midline Lochia Amount: Scant Lochia Color: Rubra/Red Perineum Description: Intact, Minimal Bruising/Swelling, Other (see below) ( Digital exam, repair intact and looks fine, flow light) Episiotomy/Laceration: Approximated Bladder Status: Voiding Urinary Elimination: Voided - Exam General: Alert, Oriented HEENT: Pupils Equal Neck: Supple Lungs: Clear to Auscultation, Normal Respiratory Effort Cardiovascular: Regular Rate, Regular Rhythm GI/Abdominal Exam: Normal Bowel Sounds, Soft, Non-Tender, No Organomegaly, No Distention, No Abnormal Bruit, No Mass, Pelvis Stable Extremities: Normal Inspection, Normal Range of Motion, Non-Tender, No Pedal Edema, Normal Capillary Refill Skin: Warm, Dry, Intact Wound/Incisions: Healing Well Neurological: No New Focal Deficit Psy/Mental Status: Alert, Normal Affect, Normal Mood - Problem List & Annotations (1) Normal labor SNOMED Code(s): 77779303 Code(s): O80 - ENCOUNTER FOR FULL-TERM UNCOMPLICATED DELIVERY; Z37.9 - OUTCOME OF DELIVERY, UNSPECIFIED Status: Acute Current Visit: No (2) Vaginal delivery SNOMED Code(s): 002666321 Code(s): O80 - ENCOUNTER FOR FULL-TERM UNCOMPLICATED DELIVERY Status: Acute Current Visit: No (3) Prolonged rupture of membranes Status: Acute Current Visit: Yes (4) SNOMED Code(s): 29861790 Code(s): Z34.90 - ENCNTR FOR SUPRVSN OF NORMAL , UNSP, UNSP TRIMESTER Status: Acute Current Visit: Yes Qualifiers: Weeks of gestation: 38 weeks Qualified Code(s): Z3A.38 - 38 weeks gestation of (5) Perineal laceration SNOMED Code(s): 318876078 Code(s): S31.41XA - LACERATION W/O FOREIGN BODY OF VAGINA AND VULVA, INIT ENCNTR Status: Acute Current Visit: Yes Qualifiers: Encounter type: initial encounter Qualified Code(s): S31.41XA - Laceration without foreign body of vagina and vulva, initial encounter (6) Meconium in amniotic fluid SNOMED Code(s): 856840283, 950005676 Code(s): P96.83 - MECONIUM STAINING Status: Acute Current Visit: Yes - Problem List Review Problem List Initiated/Reviewed/Updated: Yes - Assessment Assessment:: 11/25/2017 27 yo G3 now P3 at 38 6/7 gestational weeks without complications Right mediolateral episiotomy with 2nd degree extension-repaired Prolonged Rupture of membranes Labs-AB positive, GBS negative, Hep B neg, Hep C neg, HIV neg, Rubella Nonimmune , Hgb-10.6 11/26/17 Feeling well today, mood good well, no problems Bottom not painful, and has voided. repair intact Wants to stay until tomorrow 11/27/17 Healthy mother well ready to good home - Plan Plan:: 11/25/2017 27 yo came in with SROM at 0900 on 11/24/2017 but came to the hospital around 2330 last evening. Positive Amnisure Prolonged Rupture of Membranes SVE now 6-/-2 Fetus in LOP position FHTs category one Chanda regular with Pitocin Plan- Continue to monitor labor Continue to monitor FHTs Epidural for pain management Continue IV fluids Continue Pitocin per protocol Give one dose PCN G 5 units IV now-if no delivery in four hours will do another dose at 2.5 units Rotate patient on peanut ball Minimal SVE exams Monitor vital signs closely Plan and anticipate a vaginal delivery 11/25/2017 Routine cares Encourage and support Encourage and support good perineal care CBC tomorrow am Discharge home 24-72 hours 11/26/17 Home tomorrow support 11/27/17 Home, see me 6 weeks for a post
== END 2017-11-27 09:05 | disposition home or self-care (01) | DRG 775 ==
LOC: JP.OBCHECK 23:22 → JP.OB 11-25 00:06 → OBSVTOIN 11-25 08:51 → JP.OB 11-25 08:58 → JP.MS 11-25 08:59
PROVIDERS: ADMIT Advanced Practice Midwife; ATTEND Advanced Practice Midwife
PROC: 10E0XZZ Delivery of Products of Conception, External Approach (ICD-10-PCS; principal; 2017-11-25)
PROC: 0KQM0ZZ Repair Perineum Muscle, Open Approach (ICD-10-PCS; 2017-11-25)
PROC: 0W8NXZZ Division of Female Perineum, External Approach (ICD-10-PCS; 2017-11-25)
PROC: 3E0S3GC Introduction of Other Therapeutic Substance into Epidural Space, Percutaneous Approach (ICD-10-PCS; 2017-11-25)
DX: O42.92 Full-term premature rupture of membranes, unspecified as to length of time between rupture and onset of labor (principal); O77.0 Labor and delivery complicated by meconium in amniotic fluid; Z37.0 Single live birth; Z3A.38 38 weeks gestation of pregnancy; O70.1 Second degree perineal laceration during delivery; O66.0 Obstructed labor due to shoulder dystocia; O69.2XX0 Labor and delivery complicated by other cord entanglement, with compression, not applicable or unspecified
CPT/HCPCS: 36415; 51702; 59409; 80305-QW; 81001; 84112; 85025; 85027; 99211; A9270-GY; J2210; J2540; J2590; J2795; J7030; J7050